=== PATIENT | male | born 1965 | race Caucasian/White ===

== ENCOUNTER 2022-12-31 09:30 | Day surgery (SDC) | payer OTHER ==
[~2022-12-31] VITALS: Ht 175.3 cm; Wt 81.8 kg
[2022-12-31 09:40] VITALS: BP 132/97
[2022-12-31] MEDS ORDERED: VENL75TA4 PO (09:50)
[2022-12-31] MEDS ORDERED: CHOL10008 PO (09:50)
[2022-12-31] MEDS ORDERED: OMEP20CA16 PO (09:50)
[2022-12-31] MEDS ORDERED: ATEN-27 PO (09:50)
[2022-12-31] MEDS ORDERED: QUET100T34 PO (09:50)
[2022-12-31] MEDS ORDERED: MIRA50TA PO (09:50)
[2022-12-31] MEDS ORDERED: MELO-100 PO (09:50)
[2022-12-31] MEDS ORDERED: GABA-530 PO (09:50)
[2022-12-31] MEDS ORDERED: SIMV-42 PO (09:50)
[2022-12-31] MEDS ORDERED: ZOLP5TAB8 PO (09:50)
[2022-12-31] MEDS ORDERED: TRAZ-251 PO (09:50)
[2022-12-31] MEDS ORDERED: MIDAZolam 1 MG/ML 5ML VIAL ONE (09:59)
[2022-12-31] MEDS ORDERED: fentaNYL/PF 50MCG/1 ML 2ML syringe ONE (09:59)
[2022-12-31 11:10] VITALS: BP 124/91
[2022-12-31 11:20] VITALS: BP 122/75
[2022-12-31 11:30] VITALS: BP 125/72
[2022-12-31 11:40] VITALS: BP 112/77
== END 2022-12-31 11:45 | disposition home or self-care (01) ==
LOC: GI LAB 09:30
PROVIDERS: ATTEND Internal Medicine Gastroenterology
DX: K62.5 Hemorrhage of anus and rectum (principal); K64.2 Third degree hemorrhoids; K57.30 Diverticulosis of large intestine without perforation or abscess without bleeding; Z87.891 Personal history of nicotine dependence; Z72.89 Other problems related to lifestyle; Z98.890 Other specified postprocedural states
CPT/HCPCS: 45398; 99153; G0500; J2250; J3010; J7030; Z7512; 99152; A4620